=== PATIENT | female | born 1990 | race Caucasian/White ===

== ENCOUNTER 2017-07-23 05:19 | Observation (INO) | payer OTHER ==
[~2017-07-23] VITALS: Ht 162.6 cm; Wt 93.0 kg
--- NOTE | ~2017-07-23 | O ---
[facility] [place] [address] OPERATIVE REPORT Name: MERLINE YIN Room #: 411-P [facility]..#: [id number] Admission: 07/23/17 Attend Phys: French Winslow MD Discharge: Date of : 86 Report #: [id number] THIS REPORT FOR: //name// CC: French Winslow [facility] physician/PCP DATE OF SERVICE: 07/23/2017 PREOPERATIVE DIAGNOSIS: Herniated lumbar disk, L5-S1. POSTOPERATIVE DIAGNOSIS: Herniated lumbar disk, L5-S1. PROCEDURE: Lumbar laminectomy and diskectomy, L5-S1 level. SURGEON: French Winslow MD INDICATIONS: This 26-year-old female complains of chronic progressive low back pain with radiation into both legs, more severe on the left than the right. Clinical evaluation and MRI scan confirmed a sizeable disk herniation at L5-S1 level, this is principally in the midline with some extension laterally toward the left and right side and slightly more severe toward the left. She has tried appropriate conservative measures for some time without benefit. She is elected now to go ahead with surgical laminectomy and diskectomy. DESCRIPTION OF PROCEDURE: The patient was taken to the operating room where she was placed under general anesthesia. Prophylactic intravenous antibiotics were administered. She was turned to the prone position. The lower back was meticulously prepped and draped. C-arm was used to localize the appropriate level. A skin incision was made just to the left of midline overlying the L5-S1 interspace. The dissection was carried through rather abundant subcutaneous adipose tissue to expose the fascia, which was incised longitudinally. The paraspinal muscles were retracted out toward the left to expose the lamina of L5 and S1. A small laminotomy in the inferior aspect of L5 and the superior aspect of S1 was created. The ligamentum was excised. The canal was found to be somewhat narrowed and the dura and left S1 nerve root were slightly deformed, they were freed up from the annulus and posterior longitudinal ligament and carefully retracted toward the midline. This exposed a rather sizeable disk bulge. There were no loose extruded disk fragments in the canal, but there was marked bulging and attenuation of the posterior longitudinal ligament and the annulus, I was able to push through very easily with a small [place] and at that point, a moderate amount of loose degenerative disk debris pushed through. This was removed. The disk was entered with pituitary rongeurs and a good deal of loose degenerative disk debris was removed. Several large loose fragments just beneath the annulus and posterior longitudinal ligament were identified and removed, this resulted in significant improvement in the disk bulge and improvement in the canal caliber. Once the decompression had been completed and [address] [address] OPERATIVE REPORT Name: ANNAMARIAMERLINE Anastasiia Room #: 411-P [facility] M.RGiovanni#: [id number] Admission: 07/23/17 Attend Phys: French Winslow MD Discharge: Date of : 86 Report #: [id number] the location confirmed with a second C-arm view with a probe confirming the appropriate level, the wound was copiously irrigated. Good hemostasis was obtained. A small amount of Gelfoam and thrombin were used to cover the laminotomy defect. 40 mg of Depo-Medrol were left in the epidural space around the nerve root to help with postop pain and minimize scarring. The fascia was then closed with multiple #1 Vicryl sutures. The adipose tissues were closed with 0 Monocryl. The skin was closed with skin tonia. A sterile dressing was applied. The patient was awakened and returned to recovery room in good condition. <ELECTRONICALLY SIGNED> By: French Winslow MD 07/24/17 0757 [id number] 1510 French Winslow MD /nt
--- NOTE | ~2017-07-23 | S ---
[facility] [employer] [place] [address] SURGICAL PATH RPT PROCEDURE Name: MERLINE YIN A Room #: 411-P [facility]#: [id number] Admission: 07/23/17 Date of : 86 Discharge: 07/24/17 Report #: [id number] Path Case #: [id number] PATHOLOGY REPORT COLLECTION DATE: 07/23/2017 RECEIVED DATE: 07/23/2017 SUBMITTING PHYS: Dr. French Winslow OTHER PHYS: SPECIMEN(S) RECEIVED: A.L5-S1 disc lumbar * * * * * * * * * * * * FINAL DIAGNOSIS: L5-S1 disc, discectomy: - Fibrocartilaginous material consistent with disc material, history of moderate disc bulge. (IUV:amita; 07/27/2017) PATHOLOGIST: Martha Browning M.D. REPORT ELECTRONICALLY SIGNED BY: Martha Browning M.D. DATE/TIME: 07/27/2017 16:50 * * * * * * * * * * * * GROSS PATHOLOGY: Received in formalin labeled "Merline Yin, L5- S1 disc" and consists of a 2.5 x 2.0 x 0.7 cm aggregate of ragged, soft, firm, and white fibrocartilaginous tissue. Pulp Drier sections are submitted as A1. (DMITRI; 07/24/2017) CLINICAL HISTORY: Moderate disc bulge INITIAL CPT CODE(S): A; 10958 Professional services performed by [facility] at [facility] [employer] , [place] [address] Technical services performed by [facility] at [address] [place] [address], [address] [address]. [facility] [address] [place] [address] SURGICAL PATH RPT PROCEDURE Name: MERLINE YIN Anastasiia Room #: 411-P [facility]#: [id number] Admission: 07/23/17 Date of : 86 Discharge: 07/24/17 Report #: [id number] Path Case #: [id number] [facility] [address] PHONE: [phone] DIRECTOR: Eud Packer M.D. * * * END OF REPORT * * *
[~2017-07-23 05:19] MED LIST: BIOTIN1 MG PO; MOBIC15 MG PO; MULTI VITAMIN1 EACH PO; NEURONTIN 300300 M1 PO; VENTOLIN HFA 1818 GM INH; VITAMIN B COMP1 EACH PO
[2017-07-23 10:18] VITALS: BP 126/82
[2017-07-23 13:54] VITALS: BP 126/82
[2017-07-23 17:18] VITALS: BP 96/63
[2017-07-23 20:40] VITALS: BP 85/47
[2017-07-23 20:42] VITALS: BP 101/60
[2017-07-23 23:30] VITALS: BP 102/67; BP 109/59
[2017-07-24 05:00] VITALS: BP 102/53
[2017-07-24 08:02] VITALS: BP 96/58
[2017-07-24 09:06] VITALS: BP 126/82
== END 2017-07-24 09:15 | disposition home or self-care (01) ==
LOC: TBA 05:19 → OR 05:19 → 4N 17:12 → OR 17:13 → 4N 17:13 → ENTRNSPT 07-24 09:22 → EDTRNSPTSTS 07-24 09:25
DX: M51.16 Intervertebral disc disorders with radiculopathy, lumbar region (principal); J45.909 Unspecified asthma, uncomplicated
CPT/HCPCS: 50010; 50101; 50402; 50704; 50850; 51412; 56525; 62110; 62900; 70005